=== PATIENT | female | born 2000 | race Two or more races ===

== ENCOUNTER 2021-06-18 22:05 | Emergency (ER) | payer OTHER ==
[~2021-06-18] VITALS: Ht 152.4 cm; Wt 46.7 kg
== END 2021-06-19 00:16 | disposition home or self-care (01) ==
LOC: ER 22:05
DX: U07.1 COVID-19 (principal)

== ENCOUNTER 2021-06-20 09:00 | Outpatient (CLI) | payer OTHER | END 2021-06-20 11:00 | disposition home or self-care (01) | LOC: ASH CLINIC 09:00 | PROVIDERS: ATTEND General Practice | DX: Z23 Encounter for immunization (principal); U07.1 COVID-19 ==